=== PATIENT | male | born 1960 | race Two or more races ===

== ENCOUNTER → 2024-01-05 | Outpatient (CLI) | payer MEDICAID, SELFPAY | END | disposition home or self-care (01) | PROVIDERS: PCP Family Medicine Geriatric Medicine; Referring Provider Family Medicine Geriatric Medicine; Visit Provider Family Medicine Geriatric Medicine | DX: G47.30 Sleep apnea, unspecified (principal) | CPT/HCPCS: 95801; 95806 ==

== ENCOUNTER 2024-02-25 16:29 | Emergency (ER) | payer MEDICAID, SELFPAY ==
[2024-02-25 16:31] VITALS: BP 186/89; PULSE 87; RESP 20; TEMP 35.7; O2SAT 97; BMI 33.1
--- NOTE | 2024-02-25 16:39 | EX.ED.DYSGE1 ---
HPI History of Present Illness Chief Complaint: Nosebleed Informant: patient Narrative Narrative: Patient presents secondary to nosebleed. He states today he was sitting on his computer when he started getting bleeding from the right side of his nose. After short time he started noticing blood coming from both nares. He states a few days ago he had a very brief nosebleed from the right that resolved with pressure. He denies any recent facial trauma. He has not had URI symptoms recently. He is not on blood thinners. [facility] Medical History Hepatitis Cobb's palsy Hypertension Home Medications ?Medication ?Instructions ?Recorded ?Last Taken ?Type atorvastatin 20 mg tablet 20 mg PO QHS 02/25/24 Unknown History duloxetine 60 mg capsule,delayed 60 mg PO DAILY 02/25/24 Unknown History release lisinopril 20 1 tab PO BID 02/25/24 Unknown History mg-hydrochlorothiazide 12.5 mg tablet metoprolol tartrate 100 mg tablet 100 mg PO BID 02/25/24 Unknown History Allergy/AdvReac Type Severity Reaction Status Date / Time Penicillins Allergy Unknown PT UNSURE Verified 02/25/24 16:31 OF REACTION Social History Smoking Status: Never smoker ROS ROS ED Constitutional Constitutional ED: Denies chills or fever(s) Eyes Eyes: Denies discharge from eye(s) ENT ENT ED: Reports ear pain right and other Details: Right-sided epistaxis ; Denies discharge from eye(s), rhinorrhea or sore throat Cardiovascular Cardiovascular: Denies chest pain Respiratory/Chest Respiratory/Chest: Denies cough or dyspnea Gastrointestinal Gastrointestinal: Denies abdominal pain Musculoskeletal Musculoskeletal: Denies extremity pain Integumentary Denies Abrasions or rash Neurologic Neurologic: Denies headache(s) Allergic/Immunologic Allergic/Immunologic ED: Denies lip swelling or urticaria EXAM Physical Exam Const Vital Signs: 02/25/24 16:31 Temperature 96.3 F L Temperature Source Temporal Pulse Rate 87 Respiratory Rate 20 H Blood Pressure 186/89 H Blood Pressure Mean 121 Pulse Ox 97 Oxygen Delivery Method Room Air Positive well nourished and well developed General Appearance ED: well developed Chest Wall inspection of chest normal and palpation of chest normal Resp normal respiratory effort and clear to auscultation bilaterally Cardio regular rate and regular rhythm GI non-tender Palpation: soft Extremity normal to inspection Neuro oriented x3 and no sensory deficits noted Motor Exam: strength 5/5 throughout Psych mental status grossly normal Skin no rashes or lesions noted MDM MDM MDM Narrative Medical decision making narrative: Patient has active bleeding from the right nares. A cottonball soaked in Afrin and Cetacaine is placed in the right nare. After approximately 5 minutes this was removed and a 5.5 cm Rhino Rocket placed without difficulty. Patient is cleansed and is able to drink water to clear his throat. After approximately 20 minutes he is reevaluated has not had significant further bleeding. We will ambulate the patient in the emergency room to ensure no further bleeding with activity. I will ask for repeat vital signs. Patient will keep the packing in place and will follow-up with ENT early next week. Discharge Plan Triage Chief Complaint: Nosebleed ED Provider: Nubia Morrow Dx/Rx/DC Orders Clinical Impression: Epistaxis Instructions: ED Epistaxis (Adult) Prescriptions: No Action lisinopril-hydrochlorothiazide 20-12.5 mg tablet 1 tab PO BID atorvastatin 20 mg tablet 20 mg PO QHS metoprolol tartrate 100 mg tablet 100 mg PO BID duloxetine 60 mg capsule,delayed release(DR/EC) 60 mg PO DAILY Primary Care Provider: Care Physician,No Primary Referrals: Adria Lacy MD [Med Staff - Active Staff] - 2 Days Care Physician,No Primary [Primary Care Provider] - Print Language: Hungarian Disposition Disposition: Home, Self Care
[2024-02-25] MEDS: Oxymetazoline 0.05% 1 SPRAY SPRAY.BTL 2 SPRAY NASAL (16:58)
[2024-02-25] MEDS: Tetracaine/Benzocaine/Butamben 1 APPLIC TOPICAL (16:58)
[2024-02-25 17:29] VITALS: BP 176/74; PULSE 72; RESP 16; TEMP 36.9; O2SAT 97
== END 2024-02-25 18:20 | disposition home or self-care (01) ==
PROVIDERS: Emergency Provider Emergency Medicine; Visit Provider Emergency Medicine
DX: R04.0 Epistaxis (principal); H92.01 Otalgia, right ear; I10 Essential (primary) hypertension; Z79.899 Other long term (current) drug therapy
CPT/HCPCS: 30901; 99282

== ENCOUNTER → 2024-08-15 | Outpatient (CLI) | payer MEDICARE, OTHER, SELFPAY ==
--- NOTE | 2024-08-15 11:15 | RAD_ITS ---
EXAM: XR CERVICAL SPINE, 2 OR 3 VIEWS CLINICAL INDICATION: NECK PAIN TECHNIQUE: Frontal and lateral views of the cervical spine. COMPARISON: No relevant prior studies available. FINDINGS: VERTEBRAE: No acute fracture or subluxation. DISC SPACES: Disc space narrowing noted at C4-5, C5-6 and C6-7 associated with moderate vertebral body osteophytosis. Mild multilevel facet arthropathy. SOFT TISSUES: Normal. No prevertebral soft tissue widening. LUNG APICES: Clear. OTHER FINDINGS: Nuchal calcification noted related to remote trauma. RAD/Cerv Spine 2 or 3 Views IMPRESSION: No acute abnormality. Spondylosis as described. Electronically Signed: Simba Saucedo MD at 10:02 EST ,
--- NOTE | 2024-08-15 11:15 | RAD_ITS ---
EXAM: XR LUMBOSACRAL SPINE, 4 OR 5 VIEWS CLINICAL INDICATION: LOW BACK PAIN TECHNIQUE: Frontal, lateral and bilateral oblique views of the lumbar spine. COMPARISON: No relevant prior studies available. FINDINGS: VERTEBRAE: Partial loss of the lumbar lordosis. No acute fracture or subluxation. DISC SPACES: Multilevel disc space narrowing associated with mild vertebral body osteophytosis. GASTROINTESTINAL TRACT: Normal bowel gas pattern. RAD/L/S Spine Min 4 Views IMPRESSION: Moderate diffuse spondylosis. Electronically Signed: Simba Saucedo MD at 10:04 EST ,
== END | disposition home or self-care (01) ==
LOC: RAD 11:03
PROVIDERS: PCP Family Medicine Geriatric Medicine; Referring Provider Family Medicine Geriatric Medicine; Visit Provider Family Medicine Geriatric Medicine
DX: M54.2 Cervicalgia (principal); M54.50 Low back pain, unspecified
CPT/HCPCS: 72040; 72110

== ENCOUNTER 2024-08-28 09:00 | Outpatient (RCR) | payer MEDICARE, MEDICAID, SELFPAY ==
--- NOTE | 2024-08-12 18:36 | HP.PTEVAL ---
Patient's Visit Information Visit Information Visit Information: JAYDEN NAVA is a 64 year old M referred to Physical Therapy by Dr. Sid Allen MD with a diagnosis of NECK AND BACK PAIN. Date of Evaluation: 08/03/24 Physical Therapist: Elin Ricketts PT, Cert MDT Visit Plan Frequency: 2x /Week Duration: 4-6 Weeks Plan: Scapular Strengthening and B Pec/UT/Levator/Scalene Stretching to help reduce stress on Cervical Spine with Daily Activities. US to Neck Musculature in Sitting. Moist Heat to Neck as needed. Instruction in Proper Posture Control, Ergonomics with ADL's and Appropriate Activity Modifications. HEP Instructions. Posture correction/strengthening. 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 SITTING MOST OF THE TIME. Present symptoms: LEFT NECK PAIN. HEACHACHES NOW AND BEFORE ONSET OF NECK PAIN - INFEQUENT. PATIENT STATES HIS PRIORITY IS HIS NECK PAIN AND THAT IS WHAT HE WANTS TO HAVE ADDRESSED FIRST. Present since: AUG 2023 Pain Scale: WORST 7/10, LEAST 1/10 Currently: 1/10 Is it getting better, worse or staying the same: STAYING THE SAME Commenced as a result of: FELL ON BACK AT WORK Symptoms at onset: COULDN'T BREATHE. SEVERE PAIN IN BACK AND HEAD. COULDN'T MOVE FOR ABOUT 30 MIN. NEXT DAY WENT TO HOSPITAL AND WAS TOLD HE DIDN'T HAVE ANYTHING. Worse: WORSE AT NIGHT, LOOKING TO THE LEFT, DRIVING LOOKING TO THE LEFT, WHEN HE WAKES UP AT NIGHT A FEW TIMES HE HAS BIG PAIN, Better: HOT SHOWER, EXCEDRIN - HAS NOT TAKEN FOR [address] ALLEN TOLD HIM NOT TO TAKE IT. Disturbed sleep: YES. PATIENT REPORTS PAIN DOES NOT PREVENT HIM FROM FALLING ASLEEP AND PAIN DOES NOT WAKE HIM UP BUT WHEN HE DOES WAKE UP AT NIGHT FOR WHATEVER OTHER REASON HE HAS 10/10 NECK PAIN. HE STATES THIS PAIN DOES NOT PREVENT HIM FROM GOING BACK TO SLEEP. HE STATES WHEN HE GETS UP IN THE MORNING HE HAS 10/10 NECK PAIN AND IT DOES NOT GO AWAY UNTIL HE TAKES A HOT SHOWER. Previous history/Previous treatment: NO TREATMENTS SINCE THE FALL AND PRIOR TO THE FALL DENIES ANY HISTORY OF NECK PROBLEMS. DENIES HAVING ANY CHIROPRACTIC TREATMENTS EVER ON NECK. 6 YEARS AGO FELL FROM BED AND RESULTED IN BIG PAIN R SHLD AREA AND TOOK ABOUT 2 MONTHS TO GET BETTER - REC'D CORTISONE SHOT. Treatment this episode: NONE. Dizziness: NO Tinnitus: NO Nausea: NO Shortness of Breath: YES - CLIMBING STAIRS Difficulty Swallowing: NO Gait: INDEP WITHOUT AD. NO OTHER FALLS. Accidents: NO Unexplained weight loss: NO Imaging: AT TIME OF FALL IN [place] - PATIENT REPORTS HE WAS TOLD NECK X-RAYS WERE NORMAL. NECK X-RAYS ORDERED BY DR. ALLEN BUT NOT COMPLETED YET. PMH/Recent major surgery: HTN. HIGH CHOLESTEROL. DEPRESSION. BELLS PALSY. HEART arrhythmia. Objective Objective: Sitting Posture/Standing Posture: FH. RSH'S - L>R. Active Correction of posture: NE Other Observations: INDEP GAIT AND TRANSFERS Sensory deficit: JOSIE UE LIGHT TOUCH SENSATION GROSSLY INTACT AND SYMMETRICAL ROM deficit: JOSIE UE ROM WFL Motor deficit: JOSIE UE STRENGTH GROSSLY 5/5 WITH MMT'ING. R HORTICULTURAL THERAPIST STRENGTH = 70 LBS, L 80 LBS. Reflexes: 2+ JOSIE UE'S. Dural Signs: NEGATIVE JOSIE UE'S. Cervical Mvmt Loss: Flex: NIL Pro: NIL Ext: MOD - INCREASES L NECK - W Ret: RANGEL RSB: MOD LSB: RANGEL R Rot: MIN L Rot: MOD Postural strength: FAIR Palpation: NO ACUTE TENDERNESS WITH PALPATION OF UPPER THORACIC, CERVICAL SPINE OR OCCIPUT. Balance/Special Test Scores Oswestry Low Back Score: 0 Oswestry Neck Score: 6 Goals Goal 1:: DECREASE C/O HEAD AND NECK PAIN BY AT LEAST 75% TO EASE ADL FUNCTION Goal Time Frame: 4-6 Weeks Goal 2:: IMPROVE POSTURAL AWARENESS AND STRENGTH DEMONSTRATED BY PATIENTS ABILITY TO SELF CORRECT AND MAINTAIN PROPER POSTURE CONTROL DURING PHYSICAL THERAPY SESSIONS AT LEAST 75% OF THE TIME Goal Time Frame: 4-6 Weeks Goal 3:: PATIENT WILL BE INDEP WITH A HEP FOR CONTINUED IMPROVEMENT ONCE FORMAL PHYSICAL THERPAY CONCLUDES Goal Time Frame: 4-6 Weeks Rehabilitation Potential Physical Therapy Diagnosis: C/O HEAD AND NECK PAIN WITH DECREASED NECK ROM AND POSTURAL WEAKNESS. Rehabilitation Potential: Good Anticipated Interventions Patient/Client Instruction: Educate patient on: Condition, Plan of Care and Risk Factors For the Purpose of:: To improve self management Therapeutic Exercise to Include: Strength training, Endurance training, Body mechanics, Postural training, Flexibilty training, Neuromotor development, Active ROM and Scapular Strength/Stabilization For the Purpose of:: To decrease pain, To increase ROM, To improve muscle performance and motor function, To improve performance and independence with ADL's, To improve ability of physical actions for home/community/work/leisure, To decrease soft tissue restriction and To increase flexibility/ROM Thermo therapy (hot pack): Yes Ultrasound (thermal/non thermal): Yes For the Purpose of:: To decrease pain and To improve nutrient delivery to tissue Text: Thank you for the opportunity to evaluate your patient. For Medicare and Medicare HMO plans, please review the plan of care and approve it. It will need to be FAXED BACK to us at [phone] for Medicare purposes. For Medicare only, by signing this I certify the plan of care. Please let me know if there are questions or concerns regarding this plan of care. Physician Signature: Date:
--- NOTE | 2024-09-12 12:30 | HP.PT.NRP ---
Patient Information Patient Information: JAYDEN NAVA was seen in my office for initial evaluation on 08/03/24. The following Plan of Care was established for this patient: POC Established Initial Frequency: 2x /Week Initial Duration: 4-6 Weeks Anticipated Interventions Patient/Client Instruction: Educate patient on: Condition, Plan of Care and Risk Factors For the Purpose of:: To improve self management Therapeutic Exercise to Include: Strength training, Endurance training, Body mechanics, Postural training, Flexibilty training, Neuromotor development, Active ROM and Scapular Strength/Stabilization For the Purpose of:: To decrease pain, To increase ROM, To improve muscle performance and motor function, To improve performance and independence with ADL's, To improve ability of physical actions for home/community/work/leisure, To decrease soft tissue restriction and To increase flexibility/ROM Thermo therapy (hot pack): Yes Ultrasound (thermal/non thermal): Yes For the Purpose of:: To decrease pain and To improve nutrient delivery to tissue Last Seen Last Seen: This patient was last seen in our office 08/28/24. Pertinent comments regarding their Physical therapy will appear below: It has been my pleasure to see this patient for a total of 5 visits. This patient has not returned to Physical Therapy for more visits and is appropriate to return to MD for further follow-up as needed. At this point I will be discontinuing this patient from physical therapy. I would be happy to see this patient again in the future if found appropriate by the physician. Thank you! Elin Ricketts, PT, Cert MDT Balance/Gait/Functional tests Balance/Special Test Scores Oswestry Low Back Score: 0 Oswestry Neck Score: 6
== END 2024-08-28 19:00 | disposition home or self-care (01) ==
LOC: PT 09:00
PROVIDERS: PCP Family Medicine Geriatric Medicine; Referring Provider Family Medicine Geriatric Medicine; Visit Provider Family Medicine Geriatric Medicine
DX: M54.2 Cervicalgia (principal); M54.50 Low back pain, unspecified
CPT/HCPCS: 97035; 97162; 97530

== ENCOUNTER 2024-12-25 11:00 | Outpatient (RCR) | payer MEDICARE, MEDICAID, SELFPAY ==
--- NOTE | 2024-11-15 12:05 | HP.PTEVAL ---
Patient's Visit Information Visit Information Visit Information: JAYDEN NAVA is a 64 year old M referred to Physical Therapy by Dr. Sid Allen MD with a diagnosis of NECK PAIN AND LOW BACK PAIN. Date of Evaluation: 11/15/24 Physical Therapist: Elin Ricketts PT, Cert MDT Visit Plan Frequency: 2x /Week Duration: 4-6 Weeks Plan: FURTHER INSTRUCTION IN PROPER POSTURE CONTROL, WORK STATION ERGONOMICS AND BODY MECHANICS FOR BENDING, LIFTING, PUSHING AND PULLING NEEDED. CORE STRENGTHENING, POSTURAL STRETCHING/STRENGTHENING, SHLD SCAPULAR STABILIZATION STRENGTHENING, PEC STRETCHING, GENTLE NECK UPPER TRAP AND SCALENE STRETCHING. (NO OVER-HEAD PRESS). HIP FLEXOR, HS AND CALF STRETCHING. LE STRENGTHENING (NO OPEN CHAIN KNEE EXTENSION OR SUPINE LEG PRESS). 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 L[place]ES ALONE IN [address] [employer]. Present symptoms: L NECK PAIN. DENIES JOSIE UE SX'S. JOSIE LOW BACK PAIN. DENIES JOSIE LE SX'S. Present since: NECK PAIN STARTED 5-6 YEARS AGO AND BACK PAIN STARTED > 6 YEARS AGO. Pain Scale: NECK PAIN: WORST 8/10, LEAST 1/10 . BACK PAIN: WORST 10/10, LEAST 4/10 Currently: NECK PAIN: 2/10, BACK PAIN: 4/10 Is it getting better, worse or staying the same: NECK AND BACK PAIN ARE GETTING BETTER WITH RECENTLY STARTING OTC MOVE FREE ABOUT 3 WEEKS AGO Commenced as a result of: AUG 2023 NECK PAIN INCREASED WITH FALL BUT STARTED EARLIER FOR NO APPARENT REASON. BACK PAIN STARTED FOR NO APPARENT REASON Worse: NECK AND BACK PAIN ARE BOTH WORSE IN THE MORNING. NECK PAIN INCREASES WITH L ROTATION AND LIMITS MVMT TO THE LEFT. BACK PAIN INCREASES WITH BENDING DURING THE DAY. UNABLE TO STAND ERECT IN THE MORNING - 10/10. Better: HOT SHOWER, OTC MOVE FREE SUPPLEMENT. Disturbed sleep: YES Previous history/Previous treatment: PHYSICAL THERAPY HERE AT [facility] X 5 VISITS 2023 WITH BENEFIT BUT HAD TO STOP DUE TO OTHER MEDICAL PROBLEMS AND IS BACK NOW TO RESUME CARE. Coughing/sneezing/straining: NEGATIE FOR INCRASED NECK/BACK PAIN Gait: NORMAL ONCE GET GOING IN THE MORNING BUT NOT NORMAL FIRST THING IN THE MORNING BEFORE HAVING HOT SHOWER. Bowel or Bladder Dysfunction: NO Accidents: FALL 2022 Unexplained weight loss: NO Imagin08/15/24 LUMBAR X-RAYS: Moderate diffuse spondylosis. 08/15/24 CERVICAL X-RAYS: VERTEBRAE: No acute fracture or subluxation. DISC SPACES: Disc space narrowing noted at C4-5, C5-6 and C6-7 associated with moderate vertebral body osteophytosis. Mild multilevel facet arthropathy. SOFT TISSUES: Normal. No prevertebral soft tissue widening. LUNG APICES: Clear. OTHER FINDINGS: Nuchal calcification noted related to remote trauma. PMH/Recent major surgery: HTN. HIGH CHOLESTEROL. DEPRESSION. BELLS PALSY. HEART arrhythmia. Objective Objective: Sitting/Standing Posture: FORWARD HEAD. ROUNDED SHLD'S L>R. ANTERIOR PELVIC TILT. NO RELEVANT LATERAL LUMBAR SHIFT. Other Observations: INDEP GAIT AND TRANSFERS. ABLE TO HEEL WALK AND TOE WALK WITHOUT UE ASSIST. Sensory deficit: JOSIE UE AND LE LIGHT TOUCH SENSATION GROSSLY INTACT ROM deficit: JOSIE HIP FLEXOR, HS AND CALF TIGHTNESS. DECREASED JOSIE SHLD ELEVATION BY APPROX 25%. Motor deficit: JOSIE UE AND LE STRENGTH GROSSLY 5/5 WITH MMT'ING MID RANGE Dural Signs: NEGATIVE JOSIE UE'S AND LE'S. Cervical Mvmt Loss: Flex: NIL Pro: NIL Ext: MOD Ret: RNAGEL RSB: MOD LSB: RANGEL R Rot: MIN L Rot: MOD PATIENT C/O SOME INCREASED PAIN WITH CERVICAL ROM TESTING ALL PLANES ESPECIALLY EXTENSION, PROTRACTION AND L ROT BUT NW A RESULT. Lumbar mvmt loss: flex - MIN ext - MOD R SG - MIN L SG - MOD PATIENT C/O INCREASED LBP WITH FLEX AND L SG TESTING BUT NW A RESULT. Core strength: FAIR Postural strength: FAIR. Palpation: NO ACUTE SPINAL TENDERNESS TODAY. ALSO NO ACUTE NECK OR BACK MUSCULAR TENDERNESS. Balance/Special Test Scores Oswestry Low Back Score: 8 Oswestry Neck Score: 4 Goals Goal 1:: DECREASE C/O NECK AND LOW BACK PAIN BY AT LEAST 75% TO EASE ADL FUNCTION Goal Time Frame: 4-6 Weeks Goal 2:: INCREASE PAINFREE NECK ROM TO EASE ADL AND WORK FUNCTION Goal Time Frame: 4-6 Weeks Goal 3:: INCREASE PAINFREE LUMBAR ROM TO EASE ADL AND WORK FUNCTION Goal Time Frame: 4-6 Weeks Goal 4:: PATIENT WILL DEMONSTRATE GOOD CORE AND POSTURAL STRENGTH DEMONSTRATED BY PATIENTS ABILITY TO MAINTAIN PROPER POSTURE CONTROL AND USE PROPER BODY MECHANICS DURING PT SESSIONS AT LEAST 75% OF THE TIME WITHOUT CUEING. Goal Time Frame: 4-6 Weeks Goal 5:: PATIENT WILL BE INDEP WITH BOTH GYM AND HOME STRETCHING AND STRENGTHENING PROGRAMS FOR CONTINUED IMPROVEMENT ONCE FORMAL PHYSICAL THERAPY CONCLUDES. Goal Time Frame: 4-6 Weeks Rehabilitation Potential Physical Therapy Diagnosis: CORE AND POSTURAL STIFFNESS AND WEAKNESS WITH LE STIFFNESS. Rehabilitation Potential: Good Anticipated Interventions Patient/Client Instruction: Educate patient on: Condition, Plan of Care and Risk Factors For the Purpose of:: To improve self management Therapeutic Exercise to Include: Strength training, Body mechanics, Postural training, Flexibilty training, Neuromotor development and Scapular Strength/Stabilization For the Purpose of:: To decrease pain, To improve muscle performance and motor function, To increase tolerance to activity/condition/position, To improve ability of physical actions for home/community/work/leisure, To decrease soft tissue restriction, To increase flexibility/ROM and To improve self management Text: Thank you for the opportunity to evaluate your patient. For Medicare and Medicare HMO plans, please review the plan of care and approve it. It will need to be FAXED BACK to us at [phone] for Medicare purposes. For Medicare only, by signing this I certify the plan of care. Please let me know if there are questions or concerns regarding this plan of care. Physician Signature: Date:
--- NOTE | 2024-12-25 11:39 | HP.PTDCSUM ---
Discharge Summary D/C summary: It has been my pleasure to treat JAYDEN NAVA referred by Dr. Sid Allen MD, with the diagnosis of NECK PAIN AND LOW BACK PAIN for a total of 9 visit(s). Discharge Date: 12/25/24 Please see the following information for a summary of their discharge status. Subjective Subjective: PATIENT STATES HE IS DOING BETTER AND LIKES THE EXERCISES HE IS DOING. I SEE A BIG BIG DIFFERENCE IN MY NECK WITH DRIVING. PATIENT REPORTS A HUGE DIFFERENCE GETTING OUT OF BED TOO. STATES HE HAS LESS PAIN AT NIGHT TOO. IT REALLY HELPED ME A LOT. HE REPORTS HE IS LEAVING ON A TRIP TO [place] AND STUBBS [facility]. HE REPORTS HE DID HAVE A HEADACHE AFTER LAST VISIT BUT EVERY OTHER VISIT HE FELT BETTER AFTER TREATMENT. Pain Bilateral Back: Pain Intensity (Out of 10): 0 Left Neck: Pain Intensity (Out of 10): 0 Overall Improvement % Improvement: 95 Objective Objective/Function: PATIENT WAS SEEN TODAY FOR RE-ASSESSMENT OF PROGRESS TOWARD THE SET PT GOALS AND THE NEED FOR FURTHER PHYSICAL THERAPY VS READINESS FOR DISCHARGE. THIS PATIENT HAS MADE GOOD PROGRESS WITH PHYSICAL THERAPY AND IS NOW INDEP WITH BOTH HOME AND GYM EX PROGRAMS AND IS APPROPRIATE FOR AND AGREEABLE TO DISCHARGE. UPON EXAM TODAY: Cervical Mvmt Loss: Flex: NIL Pro: NIL Ext: MIN Ret: MOD RSB: MOD LSB: MOD R Rot: MIN L Rot: MOD PATIENT DENIES PAIN WITH CERVICAL ROM TESTING TODAY - BEFORE IT WAS PAIN BUT DOES STILL HAVE RESTRICTION ALTHOUGH IMPROVED IN SEVERAL DIRECTIONS. Lumbar mvmt loss: flex - NIL ext - MOD R SG - MIN L SG - MIN PATIENT DENIES PAIN WITH LUMBAR ROM TESTING TODAY. Core strength: FAIR Postural strength: FAIR. OTHER: PATIENT COMMUNICATED A GOOD UNDERSTANDING OF ALL INSTRUCTIONS GIVEN TODAY. ALL GOALS MET. LAST EX SESSION CONSISTED OF: UBE to increase CV endurance and blood flow: L2 x2 min ea F/B, part monitored intake/postural awareness. (18) Seated Back Extension: 55# 3x12 - foot bar 3, back pad dial 4. (17) Abdominal Machine: 47.5# 3x12 - arm bar 6, foot bar 3. (22) Seated Leg Curls: 50# 2x12 - back pad 2, calf pad 3. (4) Seated Hip Abduction: 45# 3x12. (10) Bilat Face Pulls w/rope: 40# 2x15 (face height). (10) Straight-Arm Pulldown w/t-bar: 40# 2x15 (face height). (10) Mid Row: 40# 2x15 (chest height). Demo and instruct on 3-way lateral neck flexion stretching for HEP. Calf Slant Stretch: 2x30 sec. Shuttle GH Press: 25# 2x12 ea side. WRITTEN EX INSTRUCTIONS HAVE BEEN PROVIDED AND PATIENT PLANS TO SEEK OUT PERSONAL TRAINING HERE AT [facility] UPON RETURN TO [place]. Goals Goal 1:: DECREASE C/O NECK AND LOW BACK PAIN BY AT LEAST 75% TO EASE ADL FUNCTION Goal Progress: Goal Met Goal 2:: INCREASE PAINFREE NECK ROM TO EASE ADL AND WORK FUNCTION Goal Progress: Goal Met Goal 3:: INCREASE PAINFREE LUMBAR ROM TO EASE ADL AND WORK FUNCTION Goal Progress: Goal Met Goal 4:: PATIENT WILL DEMONSTRATE GOOD CORE AND POSTURAL STRENGTH DEMONSTRATED BY PATIENTS ABILITY TO MAINTAIN PROPER POSTURE CONTROL AND USE PROPER BODY MECHANICS DURING PT SESSIONS AT LEAST 75% OF THE TIME WITHOUT CUEING. Goal Progress: Goal Met Goal 5:: PATIENT WILL BE INDEP WITH BOTH GYM AND HOME STRETCHING AND STRENGTHENING PROGRAMS FOR CONTINUED IMPROVEMENT ONCE FORMAL PHYSICAL THERAPY CONCLUDES. Goal Progress: Goal Met Plan Plan: D/C TO INDEP EX. D/C Information d/c sentence: If there are questions or concerns regarding this patient's physical therapy, please feel free to call me at [phone]. Thank you for the referral of this patient. Sincerely, Elin Ricketts, PT, Cert MDT Balance/Gait/Functional tests Balance/Special Test Scores Oswestry Low Back Score: 0 Oswestry Neck Score: 0 Improvement % Improvement: 95
== END 2024-12-25 19:00 | disposition home or self-care (01) ==
LOC: PT 11:00
PROVIDERS: PCP Family Medicine Geriatric Medicine; Referring Provider Family Medicine Geriatric Medicine; Visit Provider Family Medicine Geriatric Medicine
DX: M54.2 Cervicalgia (principal); M54.50 Low back pain, unspecified
CPT/HCPCS: 97110; 97162; 97530